=== PATIENT | female | born 1955 | race Caucasian/White ===

== ENCOUNTER 2019-01-28 12:48 | Emergency (ER) | payer SELFPAY ==
[2019-01-28 13:09] VITALS: BP 158/77
--- NOTE | 2019-01-28 13:09 | UC ---
Hand/Wrist HPI - HPI Summary HPI Summary: 63 yo female presents with right arm injury. She tells me that this morning around 0730 she was at work cleaning [employer] and her right elbow and wrist were shut into a door and she felt like her arm was "turned into an accordion". She continued to work, but pain increased prompting her visit to . She currently has pain in her right elbow and right wrist. Denies numbness. Nothing OTC for pain. - History Of Current Complaint Chief Complaint: UCUpperExtremity Stated Complaint: ARM, HAND INJURY Time Seen by Provider: 01/28/19 13:08 Hx Obtained From: Patient Hx Last Menstrual Period: novasure Onset/Duration: Sudden Onset Severity Initially: Moderate Severity Currently: Moderate Pain Intensity: 5 - Allergies/Home Medications Allergies/Adverse Reactions: Allergies Allergy/AdvReac Type Severity Reaction Status Date / Time No Known Allergies Allergy Verified 01/28/19 13:07 PMH/Surg Hx/FS Hx/Imm Hx - Additional Past Medical History Additional PMH: Allergies - Surgical History Surgical History: Yes Surgery Procedure, Year, and Place: LUMP REMOVED FROM RT ARM(CAT SCRATCH), NOVASURE,TUBAL LIGATION, - Family History Known Family History: Positive: Hypertension - Social History Occupation: Employed Full-time Lives: With Family Alcohol Use: None Substance Use Type: None Smoking Status (MU): Light Every Day Tobacco Smoker Type: Cigarettes Amount Used/How Often: 6 cigarettes daily; but states smoked "the last one today " Household Exposure Type: Cigarettes Review of Systems All Other Systems Reviewed And Are Negative: No Constitutional: Positive: Negative Skin: Positive: Negative Respiratory: Positive: Negative Cardiovascular: Positive: Negative Neurovascular: Positive: Negative Musculoskeletal: Positive: Other: - Right elbow and wrist pain Neurological: Positive: Negative Psychological: Positive: Negative Physical Exam - Summary Physical Exam Summary: GENERAL: NAD. WDWN. No pain distress. SKIN: No rashes, sores, lesions, or open wounds. CHEST: No accessory muscle use. Breathing comfortably and in no distress. CV: Pulses intact radial and ulnar. Cap refill <2seconds MSK: RIGHT ELBOW: FROM. NTTP. Strength 5/5 including vice president of procurement strength. No edema or obvious bony deformities. RIGHT WRIST: FROM. Mild snuffbox tenderness to palpation. Strength intact NEURO: Alert. Sensations intact hand and all fingers. PSYCH: Age appropriate behavior. Triage Information Reviewed: Yes Vital Signs: Initial Vital Signs Temp 98 F 01/28/19 13:03 Pulse 76 01/28/19 13:03 Resp 14 01/28/19 13:03 BP 158/77 01/28/19 13:03 Pulse Ox 100 01/28/19 13:03 Vital Signs Reviewed: Yes Diagnostics - Radiology Elbow XR Radiology Interpretation Completed By: Radiologist Summary of Radiographic Findings: IMPRESSION: #. No radiographic evidence for fracture at the RIGHT elbow or wrist. #. If there is high index of suspicion for an occult scaphoid fracture repeat exam in 7 - 10 days would be suggested. Wrist XR Radiology Interpretation Completed By: Radiologist Summary of Radiographic Findings: IMPRESSION: #. No radiographic evidence for fracture at the RIGHT elbow or wrist. #. If there is high index of suspicion for an occult scaphoid fracture repeat exam in 7 - 10 days would be suggested. Hand/Wrist Course/Dx - Course Course Of Treatment: XRs as above. Suspect wrist sprain, but given her mild snuffbox tenderness she was placed in a thumb spica splint and advised to be rechecked by [facility] in 1 week. RICE - Differential Dx/Diagnosis Provider Diagnosis: Wrist sprain, Elbow sprain Discharge ED - Sign-Out/Discharge Documenting (check all that apply): Patient Departure All imaging exams completed and their final reports reviewed: Yes - Discharge Plan Condition: Stable Disposition: HOME Patient Education Materials: Wrist Sprain (ED) Referrals: Shekhar WILSONPPham [Primary Care Provider] - Kahlil Chun MD [Medical Doctor] - 1 Week Additional Instructions: If you develop a fever, shortness of breath, chest pain, new or worsening symptoms - please call your PCP or go to the ED immediately. Your blood pressure was high at todays visit. Please see your primary provider within 4 weeks for recheck and re-evaluation. 1) Rest, Ice, and elevate your arm/wrist to decrease pain 2) Use the splint as needed for comfort 3) Given your area of pain, I recommend that you be rechecked by Occupational Medicine (worker's comp) in 1 week - Billing Disposition and Condition Condition: STABLE Disposition: Home
== END 2019-01-28 14:03 | disposition home or self-care (01) ==
LOC: UCEAST 12:48
DX: S63.501A Unspecified sprain of right wrist, initial encounter (principal); S53.401A Unspecified sprain of right elbow, initial encounter; F17.210 Nicotine dependence, cigarettes, uncomplicated; W23.0XXA Caught, crushed, jammed, or pinched between moving objects, initial encounter; Y92.9 Unspecified place or not applicable
CPT/HCPCS: 99202; G0463

== ENCOUNTER 2019-12-13 17:49 | Inpatient (IN) ==
[2019-12-13 18:33] LABS: ABS Lymphocytes 0.8 10^3/ul (1.0-4.8); ABS Monocytes 0.3 10^3/ul (0-0.8); ABS Neutrophils 11.4 10^3/ul (1.5-7.7); Eosinophil % 0.1 %; Hematocrit 46 % (35-47); Hemoglobin 15.6 g/dL (12.0-16.0); Lymphocyte % 6.6 %; Mean Corpuscular HGB Conc 34 g/dL (31-36); Mean Corpuscular Hemoglobin 32 pg (27-31); Mean Corpuscular Volume 94 fL (80-97); Mean Platelet Volume 7.4 fL (7.4-10.4); Platelet Count 289 10^3/uL (150-450); Red Blood Count 4.86 10^6 /uL (3.70-4.87); Red Cell Distribution Width 14 % (10-15); White Blood Count 12.6 10^3/uL (3.5-10.8)
[2019-12-13 18:38] LABS: Urine Appearance Cloudy; Urine Bilirubin Negative (Negative); Urine Blood Negative (Negative); Urine Color Amber; Urine Glucose Negative (Negative); Urine Ketones Trace (Negative); Urine Nitrite Negative (Negative); Urine Protein 2+(100 mg/dL) (Negative); Urine Specific Gravity 1.027 (1.010-1.030); Urine Urobilinogen Negative (Negative)
[2019-12-13 18:40] LABS: Urine Bacteria 1+ (Absent); Urine Red Blood Cell Trace(0-2/hpf) (Absent); Urine Squamous Epithelial Cell Present (Absent); Urine White Blood Cell Trace(0-5/hpf) (Absent)
[2019-12-13] MEDS ORDERED: Ondansetron 4 mg VIAL 2 MG/ML 2 ml VIAL IV ONE ×2 (18:41→20:08)
[2019-12-13] MEDS ORDERED: Morphine 4 MG/ML VIAL (1 ml) IV ONE (18:41)
[2019-12-13] MEDS ORDERED: NS 0.9% 1000 ml BAG 1,000 ML IV ONE (18:41)
[2019-12-13 19:28] LABS: Albumin 4.5 g/dL (3.2-5.2); Albumin/Globulin Ratio 1.4 (1-3); BUN/Creatinine Ratio 22.2 (8-20); C Reactive Protein 5.77 mg/L (<8.01); Calcium 9.9 mg/dL (8.6-10.3); EGFR African American 76.5 (>60); EGFR Non-African American 63.2 (>60); Globulin 3.2 g/dL (2-4); Potassium 3.8 mmol/L (3.5-5.0); Total Bilirubin 0.4 mg/dL (0.2-1.0); Total Protein 7.7 g/dL (6.4-8.9)
[2019-12-13] MEDS ORDERED: Iohexol 300 (CONTRAST) 10 ML SDV IV ONE (19:40)
[2019-12-13] MEDS ORDERED: Lactated Ringers 1000 ml BAG 1,000 ML IV ONE (22:21)
[2019-12-13] MEDS: HYDROmorphone 1 MG/1 ML SYRINGE IV PRN (23:15)
[2019-12-13] MEDS: Ondansetron 4 mg VIAL 2 MG/ML 2 ml VIAL IV PRN (23:16)
[2019-12-14] MEDS: Lactated Ringers 1000 ml BAG 1,000 ML IV SCH ×3 (00:39→21:19)
[2019-12-14 00:43] LABS: Erythrocyte Sed Rate 40 mm/Hr (0-29)
[2019-12-14] MEDS ORDERED: Ondansetron 4 mg VIAL 2 MG/ML 2 ml VIAL IV ONE (04:01)
[2019-12-14] MEDS: HYDROmorphone 1 MG/1 ML SYRINGE IV PRN ×5 (04:06→18:31)
[2019-12-14 05:46] LABS: ABS Lymphocytes 1.1 10^3/ul (1.0-4.8); ABS Monocytes 0.6 10^3/ul (0-0.8); ABS Neutrophils 10.2 10^3/ul (1.5-7.7); Eosinophil % 0.1 %; Hematocrit 40 % (35-47); Hemoglobin 14.1 g/dL (12.0-16.0); Mean Corpuscular HGB Conc 35 g/dL (31-36); Mean Corpuscular Hemoglobin 33 pg (27-31); Mean Corpuscular Volume 93 fL (80-97); Mean Platelet Volume 7.3 fL (7.4-10.4); Platelet Count 243 10^3/uL (150-450); Red Blood Count 4.29 10^6 /uL (3.70-4.87); Red Cell Distribution Width 14 % (10-15)
[2019-12-14 06:14] LABS: Albumin 3.7 g/dL (3.2-5.2); Albumin/Globulin Ratio 1.4 (1-3); Calcium 8.7 mg/dL (8.6-10.3); EGFR African American 91.6 (>60); EGFR Non-African American 75.7 (>60); Globulin 2.7 g/dL (2-4); Indirect Bilirubin 0.4 mg/dL (0.3-1.0); Potassium 3.9 mmol/L (3.5-5.0); Total Bilirubin 0.5 mg/dL (0.2-1.0); Total Protein 6.4 g/dL (6.4-8.9)
[2019-12-14] MEDS: Ondansetron 4 mg VIAL 2 MG/ML 2 ml VIAL IV PRN ×3 (07:45→21:11)
[2019-12-14 11:36] LABS: HDL Cholesterol 54.3 mg/dL
[2019-12-14] MEDS ORDERED: Albuterol HFA INHALER 8 gm MDI INH PRN (13:50)
[2019-12-14 16:21] LABS: Hepatitis B Surface Ab Not Immune (Immune)
[2019-12-15] MEDS: Prochlorperazine 5 mg/ml 2 ml VIAL (10 mg) IV PRN ×2 (00:09→12:39)
[2019-12-15] MEDS: Enoxaparin 40 MG/0.4 ML SYR SUBCUT SCH ×2 (00:13→19:53)
[2019-12-15] MEDS: HYDROmorphone 1 MG/1 ML SYRINGE IV PRN ×3 (00:16→12:39)
[2019-12-15] MEDS: Ondansetron 4 mg VIAL 2 MG/ML 2 ml VIAL IV PRN ×3 (06:06→21:57)
[2019-12-15] MEDS: Lactated Ringers 1000 ml BAG 1,000 ML IV SCH ×3 (06:17→19:50)
[2019-12-15 06:51] LABS: ABS Lymphocytes 1.4 10^3/ul (1.0-4.8); ABS Monocytes 0.9 10^3/ul (0-0.8); ABS Neutrophils 13.1 10^3/ul (1.5-7.7); Eosinophil % 0.1 %; Hematocrit 39 % (35-47); Hemoglobin 13.4 g/dL (12.0-16.0); Lymphocyte % 8.8 %; Mean Corpuscular HGB Conc 34 g/dL (31-36); Mean Corpuscular Hemoglobin 33 pg (27-31); Mean Corpuscular Volume 95 fL (80-97); Mean Platelet Volume 7.8 fL (7.4-10.4); Platelet Count 228 10^3/uL (150-450); Red Blood Count 4.11 10^6 /uL (3.70-4.87); Red Cell Distribution Width 14 % (10-15); White Blood Count 15.5 10^3/uL (3.5-10.8)
[2019-12-15 07:00] LABS: BUN/Creatinine Ratio 24.2 (8-20); Calcium 8.5 mg/dL (8.6-10.3); EGFR African American 109.4 (>60); EGFR Non-African American 90.5 (>60)
[2019-12-15 09:24] LABS: Hepatitis B Surface Antigen Positive (Nonreactive)
[2019-12-15 17:22] LABS: Immunoglobulin Subclass IgG4 77.1 mg/dL
[2019-12-15] MEDS: HYDROmorphone 0.5 MG/0.5 ML SYRINGE IV PRN ×2 (18:30→21:57)
[2019-12-16] MEDS: HYDROmorphone 0.5 MG/0.5 ML SYRINGE IV PRN ×6 (00:57→20:04)
[2019-12-16] MEDS: Lactated Ringers 1000 ml BAG 1,000 ML IV SCH ×2 (02:48→11:26)
[2019-12-16] MEDS: Ondansetron 4 mg VIAL 2 MG/ML 2 ml VIAL IV PRN ×2 (04:18→13:41)
[2019-12-16 07:09] LABS: ABS Eosinophils 0.2 10^3/ul (0-0.6); ABS Lymphocytes 1.1 10^3/ul (1.0-4.8); ABS Monocytes 0.9 10^3/ul (0-0.8); ABS Neutrophils 9.7 10^3/ul (1.5-7.7); Eosinophil % 1.6 %; Hematocrit 35 % (35-47); Hemoglobin 11.9 g/dL (12.0-16.0); Lymphocyte % 9.3 %; Mean Corpuscular HGB Conc 34 g/dL (31-36); Mean Corpuscular Hemoglobin 33 pg (27-31); Mean Corpuscular Volume 95 fL (80-97); Platelet Count 215 10^3/uL (150-450); Red Blood Count 3.68 10^6 /uL (3.70-4.87); Red Cell Distribution Width 14 % (10-15); White Blood Count 11.9 10^3/uL (3.5-10.8)
[2019-12-16 07:46] LABS: BUN/Creatinine Ratio 22.6 (8-20); Calcium 8.1 mg/dL (8.6-10.3); EGFR African American 117.6 (>60); EGFR Non-African American 97.2 (>60); Potassium 3.4 mmol/L (3.5-5.0)
[2019-12-16] MEDS: Prochlorperazine 5 mg/ml 2 ml VIAL (10 mg) IV PRN ×3 (07:53→20:04)
[2019-12-16 11:37] LABS: Magnesium 1.8 mg/dL (1.9-2.7)
[2019-12-16] MEDS: cefTRIAXone 1 gm/50 mL NS BAG 1 GM/50 ML BAG IVPB SCH (13:37)
[2019-12-16] MEDS: Enoxaparin 40 MG/0.4 ML SYR SUBCUT SCH (20:17)
[2019-12-17] MEDS: HYDROmorphone 0.5 MG/0.5 ML SYRINGE IV PRN ×7 (00:28→21:14)
[2019-12-17 07:02] LABS: ABS Eosinophils 0.4 10^3/ul (0-0.6); ABS Neutrophils 8.2 10^3/ul (1.5-7.7); Eosinophil % 3.5 %; Hematocrit 34 % (35-47); Hemoglobin 12.1 g/dL (12.0-16.0); Lymphocyte % 9.8 %; Mean Corpuscular HGB Conc 36 g/dL (31-36); Mean Corpuscular Hemoglobin 34 pg (27-31); Mean Corpuscular Volume 94 fL (80-97); Mean Platelet Volume 7.9 fL (7.4-10.4); Platelet Count 242 10^3/uL (150-450); Red Blood Count 3.61 10^6 /uL (3.70-4.87); Red Cell Distribution Width 13 % (10-15); White Blood Count 10.7 10^3/uL (3.5-10.8)
[2019-12-17 07:23] LABS: BUN/Creatinine Ratio 19.7 (8-20); Calcium 8.2 mg/dL (8.6-10.3); EGFR African American 119.9 (>60); EGFR Non-African American 99.1 (>60); Magnesium 1.7 mg/dL (1.9-2.7); Potassium 3.3 mmol/L (3.5-5.0)
[2019-12-17] MEDS: cefTRIAXone 1 gm/50 mL NS BAG 1 GM/50 ML BAG IVPB SCH (11:22)
[2019-12-17] MEDS ORDERED: Magnesium Sulfate IV 3 GM in NS 0.9% 100 ml BAG 100 ML IVPB ONE (15:00)
[2019-12-17] MEDS: Potassium Chlor 10 meq TAB PO SCH ×2 (17:57→20:03)
[2019-12-17] MEDS: Enoxaparin 40 MG/0.4 ML SYR SUBCUT SCH (20:04)
[2019-12-17] MEDS: Ondansetron 4 mg VIAL 2 MG/ML 2 ml VIAL IV PRN (20:07)
[2019-12-18] MEDS: HYDROmorphone 0.5 MG/0.5 ML SYRINGE IV PRN ×4 (00:36→14:06)
[2019-12-18 07:03] LABS: ABS Eosinophils 0.3 10^3/ul (0-0.6); ABS Lymphocytes 0.9 10^3/ul (1.0-4.8); ABS Monocytes 0.8 10^3/ul (0-0.8); Eosinophil % 2.9 %; Hematocrit 34 % (35-47); Hemoglobin 11.8 g/dL (12.0-16.0); Lymphocyte % 10.3 %; Mean Corpuscular HGB Conc 35 g/dL (31-36); Mean Corpuscular Hemoglobin 32 pg (27-31); Mean Corpuscular Volume 93 fL (80-97); Mean Platelet Volume 7.7 fL (7.4-10.4); Platelet Count 279 10^3/uL (150-450); Red Blood Count 3.64 10^6 /uL (3.70-4.87); Red Cell Distribution Width 13 % (10-15)
[2019-12-18 07:15] LABS: BUN/Creatinine Ratio 17.9 (8-20); Calcium 8.2 mg/dL (8.6-10.3); EGFR African American 132.3 (>60); EGFR Non-African American 109.3 (>60); Potassium 3.2 mmol/L (3.5-5.0)
[2019-12-18] MEDS ORDERED: Potassium Chlor 10 meq TAB PO ONE (09:27)
[2019-12-18] MEDS: Potassium Chlor 10 meq TAB PO SCH ×3 (09:32→20:22)
[2019-12-18] MEDS ORDERED: Iohexol 300 (CONTRAST) 10 ML SDV IV ONE (11:23)
[2019-12-18] MEDS: cefTRIAXone 1 gm/50 mL NS BAG 1 GM/50 ML BAG IVPB SCH (14:05)
[2019-12-18] MEDS: Enoxaparin 40 MG/0.4 ML SYR SUBCUT SCH (20:21)
[2019-12-19] MEDS: HYDROmorphone 0.5 MG/0.5 ML SYRINGE IV PRN ×2 (00:05→05:42)
[2019-12-19] MEDS: Ondansetron 4 mg VIAL 2 MG/ML 2 ml VIAL IV PRN ×2 (00:09→05:42)
[2019-12-19 05:44] LABS: ABS Basophils 0.1 10^3/ul (0-0.2); ABS Eosinophils 0.2 10^3/ul (0-0.6); ABS Lymphocytes 0.9 10^3/ul (1.0-4.8); ABS Monocytes 0.9 10^3/ul (0-0.8); ABS Neutrophils 6.5 10^3/ul (1.5-7.7); Eosinophil % 2.9 %; Hematocrit 33 % (35-47); Hemoglobin 11.5 g/dL (12.0-16.0); Lymphocyte % 10.8 %; Mean Corpuscular HGB Conc 35 g/dL (31-36); Mean Corpuscular Hemoglobin 32 pg (27-31); Mean Corpuscular Volume 92 fL (80-97); Mean Platelet Volume 7.3 fL (7.4-10.4); Platelet Count 280 10^3/uL (150-450); Red Blood Count 3.57 10^6 /uL (3.70-4.87); Red Cell Distribution Width 14 % (10-15); White Blood Count 8.6 10^3/uL (3.5-10.8)
[2019-12-19 06:15] LABS: BUN/Creatinine Ratio 12.9 (8-20); Calcium 8.3 mg/dL (8.6-10.3); EGFR African American 117.6 (>60); EGFR Non-African American 97.2 (>60); Potassium 3.6 mmol/L (3.5-5.0)
[2019-12-19] MEDS: Potassium Chlor 10 meq TAB PO SCH ×3 (09:53→21:25)
[2019-12-19] MEDS ORDERED: HYDROmorphone 0.5 MG/0.5 ML SYRINGE IV PRN (11:08)
[2019-12-19] MEDS: cefTRIAXone 1 gm/50 mL NS BAG 1 GM/50 ML BAG IVPB SCH (12:23)
[2019-12-19] MEDS: Enoxaparin 40 MG/0.4 ML SYR SUBCUT SCH (21:25)
[2019-12-20 06:57] LABS: ABS Basophils 0.1 10^3/ul (0-0.2); ABS Eosinophils 0.2 10^3/ul (0-0.6); ABS Lymphocytes 1.3 10^3/ul (1.0-4.8); Hematocrit 33 % (35-47); Hemoglobin 11.4 g/dL (12.0-16.0); Lymphocyte % 15.6 %; Mean Corpuscular HGB Conc 35 g/dL (31-36); Mean Corpuscular Hemoglobin 33 pg (27-31); Mean Corpuscular Volume 94 fL (80-97); Mean Platelet Volume 7.9 fL (7.4-10.4); Platelet Count 306 10^3/uL (150-450); Red Blood Count 3.52 10^6 /uL (3.70-4.87); Red Cell Distribution Width 13 % (10-15); White Blood Count 8.6 10^3/uL (3.5-10.8)
[2019-12-20 07:23] LABS: BUN/Creatinine Ratio 15.9 (8-20); Calcium 8.3 mg/dL (8.6-10.3); EGFR Non-African American 85.9 (>60); Magnesium 1.9 mg/dL (1.9-2.7); Potassium 3.8 mmol/L (3.5-5.0)
[2019-12-20 07:45] VITALS: BP 148/68
[2019-12-20] MEDS: Potassium Chlor 10 meq TAB PO SCH (07:49)
== END 2019-12-20 12:10 | disposition home or self-care (01) | DRG 282 ==
LOC: ED 17:49 → MED 22:19
PROVIDERS: ADMIT Internal Medicine; ATTEND Internal Medicine